=== PATIENT | male | born 1985 | race Caucasian/White ===

== ENCOUNTER 2024-12-19 12:24 | Inpatient (IN) | payer OTHER ==
[~2024-12-19] VITALS: Ht 172.7 cm; Wt 99.8 kg
[2024-12-19 12:26] VITALS: O2SAT 98
[2024-12-19] MEDS ORDERED: CHLORDIAZEPOXIDE 25MG CAPSULE PO ONE (13:15)
[2024-12-19 13:17] LABS: HEMATOCRIT. 50.5 % (42.0-52.0); HEMOGLOBIN. 17.7 g/dL (14.0-18.0); MEAN CORPUSCULAR HEMOGLOBIN 33.5 pg (28.0-32.0); MEAN CORPUSCULAR HGB CONC 35.1 g/dL (31.0-37.0); MEAN CORPUSCULAR VOLUME 95.4 fL (80.0-94.0); MEAN PLATELET VOLUME 7.9 fl (7.4-10.4); PLATELET 282 x1000/uL (130-400); RED BLOOD CELL COUNT 5.29 mill/uL (4.7-6.1); RED CELL DISTRIBUTION WIDTH 13.5 % (11.6-14.6); WHITE BLOOD COUNT 10.1 x1000/uL (4.5-11.0)
[2024-12-19 13:18] LABS: DIFFERENTIAL COMMENT 1
[2024-12-19 13:22] LABS: CHLORIDE 98 mEq/L (98-107); SODIUM 140 mEq/L (136-145)
[2024-12-19 13:23] LABS: CALCIUM 9.2 mg/dL (8.7-10.4); CARBON DIOXIDE 25 mEq/L (21-32)
[2024-12-19 13:24] LABS: POTASSIUM 2.5 mEq/L (3.5-5.1)
[2024-12-19 13:28] LABS: CREATININE 1.3 mg/dL (0.6-1.3); GLUCOSE 164 mg/dL (70-105); UREA NITROGEN BLOOD 8 mg/dL (9-23)
[2024-12-19 13:30] LABS: TROPONIN I HIGH SENSITIVITY 6 ng/L (3.0-53)
[2024-12-19 13:36] LABS: PROTHROMBIN TIME 11.4 sec (9.6-11.0)
[2024-12-19 13:44] LABS: PLATELET ESTIMATE NORMAL
[2024-12-19] MEDS: SODIUM CHLORIDE 0.9% 1,000 ML IV ONE (14:00)
[2024-12-19] MEDS: KCL 20MEQ/100ML PREMIX 100 ML IV SCH (14:20)
[2024-12-19 14:33] LABS: ETHANOL BLOOD < 10 mg/dL (<10)
[2024-12-19 15:07] LABS: PHOSPHORUS 2.8 mg/dL (2.5-4.9)
[2024-12-19] MEDS: CHLORDIAZEPOXIDE 25MG CAPSULE PO NR (15:25)
[2024-12-19] MEDS ORDERED: FOLIC ACID 1 MG, THIAMINE HCL 100 MG, MVI, ADULT NO.1 10 ML in DEXTROSE 5% WATER 1,000 ML IV ONE (15:45)
[2024-12-19] MEDS: HYDRALAZINE 20MG/ML VIAL IV ONE (16:25)
[2024-12-19] MEDS: LORAZEPAM 2MG/ML INJ IV ONE (16:26)
[2024-12-19] MEDS: MAGNESIUM 2 G PREMIX 50 ML IV ONE (16:26)
[2024-12-19 16:52] LABS: CLARITY URINE CLEAR (CLEAR); COLOR URINE DARK YELLOW (YELLOW); GLUCOSE URINE TRACE (NEGATIVE); KETONES URINE TRACE (NEGATIVE); LEUKOCYTE ESTERASE URINE TRACE (NEGATIVE); NITRITE URINE NEGATIVE (NEGATIVE); OCCULT BLOOD URINE 2+ (NEGATIVE); PH URINE 6.5 (4.5-8.0); PROTEIN URINE 4+ (NEGATIVE); SPECIFIC GRAVITY URINE 1.039 (1.005-1.030)
[2024-12-19 17:04] LABS: BACTERIA URINE TRACE; SQUAMOUS EPITHELIAL CELL URINE FEW /lpf (RARE/1+)
[2024-12-19 17:13] LABS: *AMPHETAMINES SCREEN URINE NEGATIVE (NEGATIVE); *BARBITURATES SCREEN URINE NEGATIVE (NEGATIVE); *BENZODIAZEPINES SCREEN URINE PRESUMPTIVE POSITIVE (NEGATIVE); *COCAINE SCREEN URINE NEGATIVE (NEGATIVE); CANNABINOID URINE SCREEN NEGATIVE (NEGATIVE); ECSTASY MDMA SCREEN URINE CONF.TEST INDICATED (NEGATIVE); METHADONE URINE SCREEN NEGATIVE (NEGATIVE); OPIATES URINE SCREEN NEGATIVE (NEGATIVE); PHENCYCLIDINE URINE SCREEN NEGATIVE (NEGATIVE)
[2024-12-19] MEDS: FOLIC ACID 1 MG, THIAMINE HCL 100 MG, MVI, ADULT NO.1 10 ML in SODIUM CHLORIDE 0.9% 1,0... IV ONE (18:19)
[2024-12-19] MEDS ORDERED: CLONIDINE 0.1MG TABLET PO PRN (18:45)
[2024-12-19] MEDS ORDERED: DOCUSATE SODIUM 100MG CAPSULE PO PRN (18:45)
[2024-12-19] MEDS ORDERED: HYDROCODONE/ACETAMINOPHEN 5/325MG TABLET PO PRN (18:45)
[2024-12-19] MEDS ORDERED: DIPHENHYDRAMINE 50MG/ML VIAL IV PRN (18:45)
[2024-12-19] MEDS ORDERED: PANTOPRAZOLE SODIUM 40 MG/VIAL IV ONE (18:45)
[2024-12-19] MEDS ORDERED: LORAZEPAM 2MG/ML INJ IV PRN ×2 (18:45)
[2024-12-19] MEDS ORDERED: GUAIFENESIN 200MG/10ML SUGAR FREE UDC PO PRN (18:45)
[2024-12-19] MEDS ORDERED: MAGNESIUM/ALUMINUM HYDROXIDE/SIMETHICONE 30ML UDC PO PRN (18:45)
[2024-12-19] MEDS ORDERED: ACETAMINOPHEN 325MG TABLET PO PRN ×2 (18:45)
[2024-12-19] MEDS ORDERED: NA PHOS,M-B/NA PHOS,DI-BA ENEMA 118ML PR PRN (18:45)
[2024-12-19] MEDS ORDERED: ONDANSETRON HCL 4MG/2ML INJ IV PRN (18:45)
[2024-12-19] MEDS ORDERED: ENOXAPARIN 40MG/0.4ML SYR SUBCUT SCH (18:45)
[2024-12-19] MEDS ORDERED: NALOXONE HCL 0.4MG/ML VIAL IV PRN (19:00)
[2024-12-19] MEDS: SODIUM CHLORIDE 0.9% 1,000 ML IV SCH (19:00)
[2024-12-19 20:31] LABS: ALANINE AMINOTRANSFERASE 49 IU/L (10-49); ALBUMIN 4.1 g/dL (3.2-4.8); ASPARTATE AMINOTRANSFERASE 79 IU/L (<34); BILIRUBIN DIRECT 0.3 mg/dL (<=3.0); BILIRUBIN TOTAL 1.2 mg/dL (0.1-1.0); PROTEIN TOTAL 7.3 g/dL (6.0-8.3)
[2024-12-19] MEDS: ENOXAPARIN 30MG/0.3ML SYR SUBCUT SCH (21:00)
[2024-12-19] MEDS: LEVETIRACETAM 1000MG PREMIX 100 ML IV NR (22:33)
[2024-12-19] MEDS: PANTOPRAZOLE SODIUM 40 MG/VIAL IV SCH (23:05)
[2024-12-20 00:01] LABS: POTASSIUM 2.9 mEq/L (3.5-5.1)
[2024-12-20 01:18] VITALS: BP 149/97; PULSE 90; RESP 18; TEMP 37.3; O2SAT 98
[2024-12-20 06:56] LABS: BASOPHILS % 0.5 % (0.0-2.0); EOSINOPHILS % 0.5 % (0.0-5.0); HEMATOCRIT. 42.6 % (42.0-52.0); HEMOGLOBIN. 14.8 g/dL (14.0-18.0); LYMPHOCYTES % 14.1 % (20.0-50.0); MEAN CORPUSCULAR HEMOGLOBIN 32.9 pg (28.0-32.0); MEAN CORPUSCULAR HGB CONC 34.7 g/dL (31.0-37.0); MEAN CORPUSCULAR VOLUME 94.6 fL (80.0-94.0); MEAN PLATELET VOLUME 8.6 fl (7.4-10.4); MONOCYTES % 5.7 % (2.0-8.0); NEUTROPHILS % 79.2 % (40.0-76.0); PLATELET 194 x1000/uL (130-400); RED CELL DISTRIBUTION WIDTH 13.6 % (11.6-14.6); WHITE BLOOD COUNT 8.2 x1000/uL (4.5-11.0)
[2024-12-20 07:29] LABS: CARBON DIOXIDE 28 mEq/L (21-32); CHLORIDE 102 mEq/L (98-107); SODIUM 143 mEq/L (136-145)
[2024-12-20 07:31] LABS: CALCIUM 8.2 mg/dL (8.7-10.4)
[2024-12-20 07:34] LABS: CREATININE 0.9 mg/dL (0.6-1.3)
[2024-12-20 07:35] LABS: GLUCOSE 81 mg/dL (70-105); UREA NITROGEN BLOOD 7 mg/dL (9-23)
[2024-12-20 08:00] VITALS: BP 160/99; PULSE 99; RESP 20; TEMP 36.7; O2SAT 100
[2024-12-20] MEDS ORDERED: MAGNESIUM 2 G PREMIX 50 ML IV NR (09:00)
[2024-12-20 09:18] LABS: POTASSIUM 2.5 mEq/L (3.5-5.1)
[2024-12-20] MEDS: MULTIVITAMINS,THER W-MINERALS TABLET PO SCH (10:05)
[2024-12-20] MEDS: THIAMINE HCL 100MG TABLET PO SCH (10:06)
[2024-12-20] MEDS: FOLIC ACID 1MG TABLET PO SCH (10:06)
[2024-12-20] MEDS: LEVETIRACETAM 1000MG PREMIX 100 ML IV SCH (10:06)
[2024-12-20] MEDS: POTASSIUM CHLORIDE 20 MEQ in DEXT 5% WATER 100 ML IV SCH (11:40)
[2024-12-20 12:00] VITALS: BP 142/103; PULSE 94; RESP 19; TEMP 36.7; O2SAT 100
[2024-12-20] MEDS: FAMOTIDINE 20MG/2ML VIAL IV SCH (12:40)
[2024-12-20] MEDS: AMLODIPINE 5MG TABLET PO SCH (12:41)
[2024-12-20] MEDS: LORAZEPAM 2MG/ML INJ IV PRN (13:20)
[2024-12-20 16:00] VITALS: BP 155/106; PULSE 96; RESP 19; TEMP 37.2; O2SAT 100
== END 2024-12-20 16:34 | disposition left against medical advice (07) | DRG 101 ==
LOC: ER 12:24 → 5WST 16:17 → EDBEDREQ 16:29 → EDBEDREQTM 16:29
PROVIDERS: ADMIT Internal Medicine; ATTEND Internal Medicine
PROC: 4A00X4Z Measurement of Central Nervous Electrical Activity, External Approach (ICD-10-PCS; principal; 2024-12-20)
DX: R56.9 Unspecified convulsions (principal); Z53.29 Procedure and treatment not carried out because of patient's decision for other reasons; I10 Essential (primary) hypertension; E87.6 Hypokalemia; E83.42 Hypomagnesemia; F17.210 Nicotine dependence, cigarettes, uncomplicated; F10.90 Alcohol use, unspecified, uncomplicated; Y90.9 Presence of alcohol in blood, level not specified; Z79.899 Other long term (current) drug therapy; Z71.51 Drug abuse counseling and surveillance of drug abuser
CPT/HCPCS: 36415; 71045; 80048; 80061; 80076; 80305; 80320; 81003; 83036; 83735; 83880; 84100; 84132; 84484; 85025; 93005; 95816; 99291; A4606; J0360; J1650; J1953; J2060; J2470; J3411; J3475; J3480; J3490; J7030; J7060; J7070; G0480